=== PATIENT | female | born 1995 | race Two or more races ===

== ENCOUNTER 2020-03-27 10:25 | Outpatient (CLI) | payer OTHER | END 2020-03-27 12:22 | disposition home or self-care (01) | LOC: OFIC 805 10:25 | PROVIDERS: ATTEND Otolaryngology | DX: A63.0 Anogenital (venereal) warts (principal); J34.3 Hypertrophy of nasal turbinates; K13.79 Other lesions of oral mucosa ==

== ENCOUNTER → 2020-06-27 | Outpatient (CLI) | payer OTHER | END | disposition home or self-care (01) | LOC: OFIC 805 10:32 | PROVIDERS: ATTEND Otolaryngology | DX: J34.3 Hypertrophy of nasal turbinates (principal); J30.89 Other allergic rhinitis; R09.81 Nasal congestion; J34.2 Deviated nasal septum ==

== ENCOUNTER 2020-07-29 11:32 | Outpatient (CLI) | payer OTHER | END 2020-07-29 16:17 | disposition home or self-care (01) | LOC: OFIC 805 11:32 | PROVIDERS: ATTEND Otolaryngology | DX: R09.81 Nasal congestion (principal); J30.89 Other allergic rhinitis; J34.2 Deviated nasal septum ==

== ENCOUNTER 2020-11-07 11:54 | Outpatient (CLI) | payer OTHER | END 2020-11-07 13:27 | disposition home or self-care (01) | LOC: OFIC 805 11:54 | PROVIDERS: ATTEND Otolaryngology | DX: J34.2 Deviated nasal septum (principal); R09.81 Nasal congestion; J30.89 Other allergic rhinitis; J45.998 Other asthma ==

== ENCOUNTER 2021-03-17 13:48 | Emergency (ER) | payer OTHER ==
[~2021-03-17] VITALS: Ht 167.6 cm; Wt 99.8 kg
== END 2021-03-18 | disposition home or self-care (01) ==
LOC: ER 13:48
DX: D69.6 Thrombocytopenia, unspecified (principal); R04.0 Epistaxis; E11.9 Type 2 diabetes mellitus without complications